=== PATIENT | male | born 1945 | race Caucasian/White ===

== ENCOUNTER 2022-03-23 08:21 | Outpatient (REF) | payer MEDICARE, SELFPAY ==
[2022-03-23 11:10] LABS: MANUAL DIFF FLAG NO
[2022-03-23 11:14] LABS: Basophils Percent Auto 0.3 % (0-2); Eosinophils Absolute Auto 0.2 X10*3/uL (0.0-0.4); Eosinophils Percent Auto 3.1 % (0-4); Hematocrit 48.3 % (42.0-52.0); Hemoglobin 15.7 g/dl (14.0-18.0); Imm Gran Abs Auto 0.05 X10*3/uL (0.00-0.03); Imm Gran Pct Auto 0.6 % (0.0-0.4); Lymphocytes Absolute Auto 2.2 X10*3/uL (1.2-4.9); Lymphocytes Percent Auto 27.5 % (20-40); Mean Corpuscular HGB Conc 32.5 g/dl (31.0-36.0); Mean Corpuscular Volume 92.4 fL (80.0-98.0); Mean Platelet Volume 10.1 fL (9.4-12.4); Monocytes Absolute Auto 0.7 X10*3/uL (0.1-1.2); Monocytes Percent Auto 9.2 % (2-11); Neutrophils Absolute Auto 4.6 x10*3/uL (2.0-8.3); Neutrophils Percent Auto 59.3 % (45-73); Platelet Count 209 X10*3/uL (160-400); Red Blood Count 5.23 X10*6/uL (4.60-5.80); Red Cell Distribution Width 13.6 % (11.0-16.0); White Blood Count 7.8 X10*3/uL (4.8-10.8)
[2022-03-23 11:34] LABS: Alanine Aminotransferase 24 U/L (0-40); Albumin Level 3.7 g/dL (3.5-5.0); Alkaline Phosphatase 72 U/L (39-117); Anion Gap 13 (12-20); Aspartate Amino Transferase 19 U/L (5-37); Bilirubin Total 0.8 mg/dL (0.0-1.0); Blood Urea Nitrogen 24 mg/dL (9-16); Calcium 8.7 mg/dL (8.4-10.2); Carbon Dioxide 25 mmol/L (22-29); Chloride 107 mmol/L (96-108); Cholesterol 93 mg/dL; Estimated Glomerular Filt Rate > 60; Glucose Random 99 mg/dL (60-115); HDL Cholesterol 32 mg/dL; LDL Cholesterol Calculated 45 mg/dl; Potassium 4.6 mmol/L (3.3-5.1); Sodium 140 mmol/L (135-145); Total Protein 6.1 g/dL (6.5-8.0); Triglycerides 83 mg/dL
== END 2022-03-23 08:22 | disposition home or self-care (01) ==
LOC: HO.MANLDS 08:21
PROVIDERS: Visit Provider Internal Medicine
DX: Z00.00 Encounter for general adult medical examination without abnormal findings (principal); Z13.6 Encounter for screening for cardiovascular disorders
CPT/HCPCS: 36415; 80053; 80061; 85025

== ENCOUNTER 2025-03-12 09:39 | Outpatient (REF) | payer MEDICARE, SELFPAY ==
--- OUTSIDE RECORDS SUMMARY | 2025-03-12 10:21 | XMS_ITS | Continuity of Care Document ---
Author Organization [facility], [facility] Address [address] [place] [address] [place] [address] Care Team Providers Care Case Resource Manager Name Role Phone JIN PENA Dielectric Machine Operator [phone] Assessment Encounter Date Assessment Date Assessment LastModified by Organization Details LastModified Time 03/07/2025 03/07/[place] [id number] [place] [id number] (DIGITAL PRE PRESS OPERATOR) MDM MODERATE MUST MEET 2 OUT OF 3 ELEMENTS: PROBLEMS, DATA OR RISK ELEMENT 1: PROBLEMS ADDRESSED 1 OR MORE CHRONIC ILLNESS WITH EXACERBATION OR 2 OR MORE STABLE CHRONIC ILLNESSES OR 1 UNDIAGNOSED NEW PROBLEM OR 1 ACUTE ILLNESS W/SYMPTOMS OR 1 ACUTE COMPLICATED INJURY ELEMENT 2: DATA MUST MEET 1 OF 3 CATEGORIES CATEGORY 1: REVIEW OF PRIOR EXTERNAL NOTES, REVIEW OF RESULTS, ORDERING OF EACH TEST, ASSESSMENT REQUIRING INDEPENDENT HISTORIAN OR CATEGORY 2: INDEPENDENT INTERPRETATION OF TESTS BY ANOTHER PHYSICIAN OR SPECIALIST OR CATEGORY 3: DISCUSSION OF MGT OR TEST INTERPRETATION W/EXTERNAL PHYSICIAN OR SPECIALIST ELEMENT 3: RISK RISK OF COMPLICATIONS AND/OR MORBIDITY OR MORTALITY OF PATIENT MANAGEMENT PROVIDER MUST THOROUGHLY DOCUMENT EACH ELEMENT THAT IS COVERED Not available 03/07/2025 11:26:45 Plan of Treatment Reminders Order Date Submit Date Provider Last Modified By Organization Details Last Modified Time Details Appointments FOLLOW UP 15 2024 10:30A M DR AVILA Not available Not available Not available Lab vitamin B12, serum 2024 025 [facility], [address] [place] [address], [place], [address], 03/07/2025 11:32:58 Referral None recorded . Procedures None recorded . Surgeries None recorded . Imaging None recorded . Medication Orders None recorded . Patient TargetsNo targets recorded. Patient Instructions Encounter Date Encounter Id Patient Instructions Last Modified By Organization Details Last Modified Time 03/07/2025 [id number] supraventricular tachycardia: care instructions Not available 03/07/2025 11:27:12 chronic obstruct camelia pulmonary disease (COPD): care instructions Not available 03/07/2025 11:27:12 learning about c opd and how to prevent lung infections Not available 03/07/2025 11:27:12 Reason for Referral None Reported. Problems Name Problem SNOMED Code Status Onset Date Resolution Date Notes Provider Name and Address Organization Details Recorded Time Hyperten sive disorder 52187820 Active 2017 at times Noemi mallory [facility] 8 16:28:36 Osteoart hritis 191378647 Active 2017 b/l knee Noemi mallory [facility] 8 16:31:12 Chronic obstruct camelia pulmonar y disease 73829789 Active 2017 Noemi mallory [facility] 8 16:31:37 Asthma 229132409 Active 2017 Noemi mallory [facility] 8 16:31:43 Gastroes ophageal reflux disease 887298396 Active 2017 Noemi mallory [facility] 8 16:31:49 Osteoart hritis of shoulder region 30384610 Active 2017 Noemi mallory [facility] 8 16:34:25 Cellulit is 132166499 Active 2017 Noemi mallory [facility] 8 16:35:07 Paroxysm al supraven tricular tachycar alaina 78878440 Active 2017 Chuck Avila, DO [address] [place], [address], [facility] 5 11:27:02 Divertic ulitis 210221965 Active 2017 LLQ [facility] 8 16:35:31 Peripher al nerve disease 956411701 Active 2017 [facility] 8 16:37:48 Sciatica 13840927 Active 2017 [facility] 8 16:38:11 Supraven tricular arrhythm ia 03997938 Active 2018 Chuck Avila DO [address] [place] [address], [address], [facility] 9 14:17:47 Carpal tunnel syndrome 20167260 Active 2018 Chuck Avila DO [address] [place] [address], [address], [facility] 9 16:55:57 Intersti tial lung disease 963084568 Active 2021 Chuck Avila DO [address] [place] [address], [address], [facility] 2 10:58:38 Chronic silicosi s 925544561 Active 2021 Chuck Avila DO [address] [place] [address], [address], [facility] 2 11:04:22 Jarvis' s esophagu s 013020053 Active 2021 Chuck Avila DO [address] [place] [address], [address], [facility] 2 11:04:44 Hypercho lesterol emia 28451711 Active 2021 Chuck Avila DO [address] [place] [address], [address], [facility] 2 11:09:26 Primary malignan t neoplasm of lung 13446185 Active 2022 Chuck Avila DO [address] [place] [address], [address], [facility] 3 16:07:23 Intermit tent manda flowers 83350492 Active 2022 Chuck Avila, DO [address] [place] [address], [address], [facility] 3 16:07:26 Melena 5069638 Active 2022 Chuck Avila DO [address] [place] [address], [address], [facility] 3 16:10:02 Cervico- occipita l neuralgi a 05601812 Active 2022 Chuck Avila, DO [address] [place] [address], [address], [facility] 3 16:10:11 Dizzines s 000943255 Active 2022 Chuck Avila DO [address] [place] [address], [address], [facility] 3 16:10:18 Pain in left foot 39343088735 9107 Active 2022 Chuck Avila DO [address] [place] [address], [address], [facility] 3 16:10:38 Adenocar cinoma of lung 805286398 Active 2023 Chuck Avila DO [address] [place] [address], [address], [facility] 4 10:53:59 Supraven tricular tachycar alaina 7682947 Active 2023 Chuck Avila DO [address] [place] [address], [address], [facility] 4 10:53:59 Bilatera l arthriti s of hip 56224139466 85461 Active 2023 Chuck Avila DO [address] [place] [address], [address], [facility] 4 10:54:33 Peripher al vascular disease 812059235 Active 2023 Chuck Avila DO [address] [place] [address], [address], [facility] 4 11:22:45 Osteoart hritis of hip 828201381 Active 2023 Chuck Avila DO [address] [place] [address], [address], [facility] 4 11:24:36 Malignan t neoplasm of lung 870367400 Active 2023 JANELL ROPER [address] [place] [address], [address], [facility] 4 10:32:17 Hip joint painful on movement 933627359 Active 2023 Chuck Avila DO [address] [place] [address], [address], [facility] 4 14:25:30 Peripher al arterial insuffic iency 65994689064 9104 Active 2023 Chuck Avila DO [address] [place] [address], [address], [facility] 4 22:01:19 Paresthe asaf of lower extremit y 871681149 Active 2024 Chuck Avila DO [address] [place] [address], [address], [facility] 5 11:26:20 Notes:lung cancer Left lobec toy 03/2009 Problem Notes None recorded. Procedures Surgical History Date Name Laterality Status Provider Name and Address Organization Details Recorded Time 9 Cerumen Removal completed January KEREN Coffey [address] [place], [address], [facility] 08/05/2019 09:37:53 Imaging Results None recorded. Procedure Notes None recorded. Medical Equipment None Reported. Allergies No known drug allergies Medications Name Sig Start Date Stop Date Status Note LastModified by Organization Details LastModified Time celecoxib 200 mg capsule TAKE 1 CAPSULE BY MOUTH TWO TIMES A DAY FOR 7 DAYS active Not Available Not Available No t Available atorvastati n 40 mg tablet TAKE 1 TABLET BY MOUTH EVERY DAY active Not Available Not Available No t Available diltiazem CD 240 mg capsule,ext ended release 24 hr Take 1 capsule every day by oral route for 30 days. 03/20 completed Not Available Not Available Not Available meclizine 12.5 mg tablet TAKE 1 TABLET BY MOUTH TWICE DAILY NEEDED active Not Available Not Available No t Available amlodipine 5 mg tablet 01/04 completed Not Available Not Available Not Available aspirin 81 mg tablet,milly yed release TAKE 1 TABLET BY MOUTH DAILY active Not Available Not Available No t Available amitriptyli ne 50 mg tablet TAKE 1 TABLET BY MOUTH AT BEDTIME 03/20 completed Not Available Not Available Not Available amoxicillin 500 mg tablet TAKE 4 TABLETS BY MOUTH BEFORE INJECTION FOR 1 HOUR 10/18 completed Not Available Not Available Not Available amlodipine 10 mg tablet TAKE 1/2 TABLET BY MOUTH EVERY DAY 01/04 completed Not Available Not Available Not Available gabapentin 300 mg capsule TAKE 1 CAPSULE BY MOUTH THREE TIMES A DAY 02/10 completed Not Available Not Available Not Available diltiazem CD 120 mg capsule,ext ended release 24 hr Take 1 capsule by oral route for 30 days. 09/01 completed Not Available Not Available Not Available lisinopril 5 mg tablet TAKE ONE TABLET QD PO 06/26 completed Not Available Not Available Not Available diclofenac sodium 50 mg tablet,milly yed release TAKE 1 TABLET BY MOUTH TWICE DAILY active Not Available Not Available No t Available furosemide 20 mg tablet TAKE 1 TABLET BY MOUTH NEEDED DIRECTED 03/07 completed Not Available Not Available Not Available albuterol sulfate HFA 90 mcg/actuati on aerosol inhaler INHALE 2 PUFFS BY MOUTH EVERY 4 TO 6 HOURS NEEDED active Not Available Not Available No t Available amoxicillin 875 mg-potassiu m clavulanate 125 mg tablet TAKE 1 TABLET BY MOUTH EVERY 12 HOURS FOR 10 DAYS 04/23 completed Not Available Not Available Not Available oxycodone 5 mg tablet TAKE 1 TABLET BY MOUTH EVERY 4 HOURS NEEDED FOR MODERATE PAIN 02/10 completed Not Available Not Available Not Available Prilosec OTC 20 mg tablet,milly yed release Take by oral route. active Not Available Not Available No t Available metoprolol tartrate 25 mg tablet TAKE 1 TABLET BY MOUTH TWICE DAILY 06/26 completed Not Available Not Available Not Available IBU-200 qd active Not Available Not Avail able Not Available multivitami n once per day active Not Available Not Available No t Available Ventolin HFA prn active Not Available Not Available Not Available peg 3350-electr olytes 236 gram-22.74 gram-6.74 gram-5.86 gram solution MIX AND DRINK DIRECTED 05/31 completed Not Available Not Available Not Available Fiber Gummies 2 qd active Not Available Not Available Not Available Fluzone High-Dose Quad (PF) 240 mcg/0.7 mL IM syringe ADM 0.7ML IM UTD 04/23 completed Not Available Not Available Not Available Vitals Date Recorded Body height Body mass index (BMI) Body weight Oxygen saturation Oxygen saturation in Arterial blood by Pulse oximetry Heart rate Systolic blood pressure Diastolic blood pressure Provider Name and Address Organization Details Last Updated DateTime 5 177.8 cm 31.4 kg/m2 95146.6 5 g 97 % 97 % 74 /min 126 mm[Hg] 70 mm[Hg] [facility] 5 10:56:17 Social History Question Answer Notes LastModified by Organizat ion Details LastModified Time Tobacco Smoking Status Former Smoker Not Available [facility] 08/18/2020 03:36:24 What Was The Date Of Your Most Recent Tobacco Screening? 03/07/2025 [email or web address] Information not available 03/07/2025 How Many Years Have You Smoked Tobacco? 30 [id number] Information not available 08/18/2020 Sex: Unknown Functional Status Question Answer Note LastModified by Organization D etails LastModified Time Do you or have you ever used any other forms of tobacco or nicotine? No [email or web address] Information not available 01/04/2023 Mental Status None recorded. Family History Nothing Reported. Medical History Condition Response Coronary Artery Disease N Other N Gout N Kidney Stones N Blood Diseases N Breast Cancer N Blood Transfusion N Lung Disease N COPD N Depression N Defects or Inherited Disease N Anxiety Disorder N Muscle, Joint, or Bone Problems N Obesity N Vision or Eye Problems N Arthritis N Polyps N Infertility N Mental Disorder N Cancer N Varicosities N Stroke N Endometriosis N Bladder or Kidney Problems N High Cholesterol N Liver Disease N Headaches N Fibromyalgia N Kidney Disease N Allergies/Hayfever N Heart Problems N Hospitalizations N Thyroid Problems N GI Problems N Skin Problems N Eating Disorder N Anemia N MRSA exposure N Constipation N Mental Illness N Ovarian Cancer N Diabetes N Seizures/Epilepsy N Tuberculosis N Congestive Heart Failure (CHF) N Eczema N Diverticulitis N Abuse/Domestic Violence N Asthma N Reflux/GERD N Hepatitis N Heart Disease N Pulmonary Embolism N Hypertension N Chicken Pox N Autism Spectrum Disorder (ASD) N Osteoporosis N Immunizations Vaccine Type Date Status Note Provider Nam e and Address Organization Details Recorded Time COVID-19, mRNA, LNP-S, PF, 30 mcg/0.3 mL dose 1 completed Not Available [facility] 12/01/2023 07:42:29 COVID-19, mRNA, LNP-S, PF, 30 mcg/0.3 mL dose 1 completed Not Available [facility] 12/01/2023 07:42:30 Influenza, split virus, quadrivalent, preservative 8 completed Not Available [facility] 12/01/2023 07:42:29 pneumococcal polysaccharide PPV23 5 completed Not Available [facility] 12/01/2023 07:42:30 Pneumococcal conjugate PCV 13 7 completed Not Available [facility] 12/01/2023 07:42:30 Influenza, split virus, quadrivalent, preservative 9 completed Not Available [facility] 12/01/2023 07:42:29 Past Encounters Encounter ID Performer Location Encounter Start Date Encounter Closed Date Diagnosis/Indication Diagnosis SNOMED-CT Code Diagnosis ICD10 Code Diagnosis Note [id number] DO [facility] [address],[place] [address] 02/10/2025 09:01:53 02/10/2025 09:59:08 Asthma 045610923 J45.909 still an issue still having sx and that with his hx of smoking he has some chronic ds Chronic ob structive pulmonary disease 63461661 J41.1 has been healing well adfter surgery but breathing is stil 50-50 per ptremains active but no bull work seems to be ok except when he is exerting and this has worsened and his walking is becoming quite limited cont to tx symptomati gonzález but overall seems better uses ventolin when necess we will stop the beta rhina and change to diltiazemh ave to wait on further tx pending his oncology evaldid not tolerate the trelegy Hypercholesterolemia 136 26093 E78.2 no new issues Hypertensive disorder 38 308176 I10 stable overalloff the lisinopril and diszziness is gonewe will stop the furosemide now and hoepefully see his dizziness get better and will follow his bp Peripheral vascular disease 924630257 I73.89 awaiting the US scans done at [facility] Depression screening 171 921846 Z13.31 phq-9 score of 12 [id number] Chuck Avila DO [facility] [address],[place] [address] 03/07/2025 10:29:42 03/07/2025 11:29:17 Hypertensive disorder 75077710 I10 stable overalloff the beta blcker and dizziness is gone Chronic ob structive pulmonary disease 11481457 J41.1 has been healing well adfter surgery but breathing is stil 50-50 per ptremains active but no bull work seems to be ok except when he is exerting and this has worsened and his walking is becoming quite limited cont to tx symptomati gonzález but overall seems better uses ventolin when necess we will stop the beta rhina and change to diltiazemh ave to wait on further tx pending his oncology evaldid not tolerate the trelegy Paroxysmal supraventricular tachycardia 66943187 I47.10 quiet and stable on diltiazem Paresthesi a of lower extremity 283503765 R20.0 R20.2 Health Concerns Section Related Observation LastModified by Organization Detai ls LastModified Time None Recorded Concern Status LastModified by Organization Details LastModified Time None Recorded Payers Encounter Date Sequence Insurance Name Policy Number Policy Oneill Covered Member ID Oneill Member ID Guarantor Name 03/07/2025 2 [place] [id number] H[employer] Crump [id number] [employer] Crump 03/07/2025 1 [place] [employer] H[employer] Craink [id number] [employer] Notes Date Note Type Note Provider Name a nd Address Organization Details Recorded Time 03/07/2025 text/html here for rechk a nd is having some pins and needle sensation to both feet intermittently can be there on occasion and has had for years and this has increased in frequency usually just the bottom of the leg can be gone for a week or have it bother him for all night states feels much better since stopping the beta rhina Chuck Avila, DO [address], [place], [address], [facility] 03/07/2025 11:28:27
[2025-03-12 14:09] LABS: Vitamin B12 336 pg/mL (200-900)
== END 2025-03-12 09:40 | disposition home or self-care (01) ==
LOC: HO.MANLDS 09:39
PROVIDERS: Visit Provider Internal Medicine
DX: R20.0 Anesthesia of skin (principal); R20.2 Paresthesia of skin
CPT/HCPCS: 36415; 82607